=== PATIENT | female | born 1990 | race American Indian/Alaskan Native ===

== ENCOUNTER 2021-04-08 18:45 | Emergency (ER) | payer OTHER, MEDICAID ==
[2021-04-08 20:23] VITALS: BP 178/104
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
== END 2021-04-08 22:30 | disposition home or self-care (01) ==
LOC: ED 18:45
DX: S16.1XXA Strain of muscle, fascia and tendon at neck level, initial encounter (principal); S20.219A Contusion of unspecified front wall of thorax, initial encounter; I11.0 Hypertensive heart disease with heart failure; I50.9 Heart failure, unspecified; E11.9 Type 2 diabetes mellitus without complications; Z79.899 Other long term (current) drug therapy; V49.59XA Passenger injured in collision with other motor vehicles in traffic accident, initial encounter; Y93.89 Activity, other specified; Y92.410 Unspecified street and highway as the place of occurrence of the external cause; Y99.8 Other external cause status
CPT/HCPCS: 71046

== ENCOUNTER 2021-04-14 23:22 | Emergency (ER) | payer MEDICAID, OTHER ==
[2021-04-14 23:37] VITALS: BP 157/110
[2021-04-15] MEDS ORDERED: traMADol 50 MG TAB PO ONE (03:34)
[2021-04-15] MEDS ORDERED: TETANUS,DIPH,PERTUSS(ACELL) VACCINE 0.5 ML SYRINGE IM ONE (03:34)
[2021-04-15] MEDS ORDERED: AMOXICILLIN/K CLAV 875/125MG TAB PO ONE (03:34)
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
== END 2021-04-15 04:15 | disposition home or self-care (01) ==
LOC: ED 23:22
DX: S60.413A Abrasion of left middle finger, initial encounter (principal); I11.0 Hypertensive heart disease with heart failure; I50.9 Heart failure, unspecified; E11.9 Type 2 diabetes mellitus without complications; Z79.2 Long term (current) use of antibiotics; Z79.899 Other long term (current) drug therapy; Y04.1XXA Assault by human bite, initial encounter; Y93.89 Activity, other specified; Y92.89 Other specified places as the place of occurrence of the external cause; Y99.8 Other external cause status
CPT/HCPCS: 90471; 90715; 99282